=== PATIENT | female | born 2000 | race Two or more races ===

== ENCOUNTER → 2023-09-05 | Outpatient (REF) | payer MEDICARE ==
[2023-09-05 15:42] LABS: CHLAMYDIA DNA AMPLIFICATION NEGATIVE (NEGATIVE); GC DNA AMPLIFICATION NEGATIVE (NEGATIVE)
== END ==
LOC: M SFHCWAGY 13:27
PROVIDERS: ATTEND Nurse Practitioner Family
DX: Z11.3 Encounter for screening for infections with a predominantly sexual mode of transmission (principal); N73.9 Female pelvic inflammatory disease, unspecified

== ENCOUNTER → 2023-11-20 | Outpatient (REF) | payer MEDICARE, OTHER ==
[2023-11-20 19:02] LABS: Trichomonas vaginalis (AMP) NOT DETECTED (NEGATIVE)
[2023-11-20 19:25] LABS: GC DNA AMPLIFICATION NEGATIVE (NEGATIVE)
== END ==
LOC: M SFHCWAGY 16:55
PROVIDERS: ATTEND Nurse Practitioner Family
DX: Z12.4 Encounter for screening for malignant neoplasm of cervix (principal); Z11.3 Encounter for screening for infections with a predominantly sexual mode of transmission; R87.610 Atypical squamous cells of undetermined significance on cytologic smear of cervix (ASC-US)

== ENCOUNTER 2024-01-06 17:20 | Emergency (ER) | payer OTHER ==
[~2024-01-06] VITALS: Ht 152.4 cm; Wt 70.9 kg
[2024-01-06 18:27] LABS: HEMATOCRIT 43.3 % (36.0-47.0); HEMOGLOBIN 14.4 g/dl (12.0-15.5); MEAN CORPUSCULAR HEMOGLOBIN 30.4 pg (27.0-33.0); MEAN CORPUSCULAR HGB CONC 33.3 g/dl (32.0-36.5); MEAN CORPUSCULAR VOLUME 91.5 fl (80.0-96.0); PLATELET COUNT, AUTOMATED 269 10^3/uL (150-450); RED BLOOD COUNT 4.73 10^6/uL (4.00-5.40); WHITE BLOOD COUNT 6.3 10^3/uL (4.0-10.0)
[2024-01-06 18:33] LABS: AMPHETAMINES LEVEL URINE NEGATIVE (NEGATIVE); BARBITURATES URINE NEGATIVE (NEGATIVE); BENZODIAZEPINES URINE NEGATIVE (NEGATIVE); COCAINE METABOLITE URINE NEGATIVE (NEGATIVE); METHADONE URINE NEGATIVE (NEGATIVE); OPIATES URINE NEGATIVE (NEGATIVE); PHENCYCLIDINE URINE NEGATIVE (NEGATIVE)
[2024-01-06 18:36] LABS: ETHYL ALCOHOL (ETHANOL) < 0.003 % (0.000-0.010)
[2024-01-06 18:38] LABS: ALKALINE PHOSPHATASE 83 U/L (46-116); ALT/SGPT 11 U/L (7.0-40); AST/SGOT 10 U/L (<34); BILIRUBIN,DIRECT 0.2 MG/DL (<0.4); BILIRUBIN,TOTAL 0.5 MG/DL (0.3-1.2); BLOOD UREA NITROGEN 6 MG/DL (9-23); CALCIUM LEVEL 9.4 MG/DL (8.5-10.1); CARBON DIOXIDE LEVEL 26 MMOL/L (20-31); CHLORIDE LEVEL 106 MMOL/L (98-107); CREATININE FOR GFR 0.79 MG/DL (0.55-1.30); GLOMERULAR FILTRATION RATE > 60.0 (>60); GLUCOSE, FASTING 76 MG/DL (60-100); POTASSIUM SERUM 3.8 MMOL/L (3.5-5.1); SALICYLATE LEVEL < 3.0 MG/DL (<30); SODIUM LEVEL 139 MMOL/L (136-145); TOTAL PROTEIN 7.1 G/DL (5.7-8.2)
[2024-01-06 18:40] LABS: HCG, SERUM QUALITATIVE NEGATIVE (NEGATIVE); THYROID STIMULATING HORMONE 0.164 uIU/ML (0.55-4.78)
[2024-01-06 18:41] LABS: CANNABINOIDS URINE POSITIVE (NEGATIVE)
[2024-01-06] MEDS ORDERED: QUET1TAB17 PO (21:28)
[2024-01-06] MEDS ORDERED: CITA40TA7 PO (21:28)
[2024-01-06] MEDS ORDERED: INVE234I INJ (21:28)
[2024-01-06] MEDS ORDERED: HALO5TAB33 PO (21:28)
[2024-01-06] MEDS ORDERED: PROP10TA56 PO (21:28)
[2024-01-06] MEDS ORDERED: PRAZ1CAP PO (21:28)
[2024-01-06] MEDS ORDERED: HOME MED LIST COMPLETE! XX SCH (21:30)
[2024-01-06] MEDS ORDERED: QUEtiapine FUMERATE XR 50MG TABER PO ONE (22:50)
[2024-01-06] MEDS: NICOTINE 21MG/24HR 1 EA TRANSDERMAL TD ONE (23:02)
[2024-01-06 23:03] VITALS: BP 124/88
[2024-01-06] MEDS: QUEtiapine FUMARATE 25 MG TAB PO ONE (23:03)
[2024-01-06] MEDS: PROPRANOLOL 10 MG TAB PO ONE (23:03)
[2024-01-06] MEDS: PRAZOSIN 1 MG CAP PO ONE (23:03)
[2024-01-07] MEDS: NICOTINE 14 MG/24 HR TRANSDERMAL TD ONE (17:46)
[2024-01-07 19:33] VITALS: BP 135/82; TEMP 98; O2SAT 100
== END 2024-01-07 19:37 ==
LOC: M ED 17:20
DX: R45.851 Suicidal ideations (principal); F32.A Depression, unspecified; F31.9 Bipolar disorder, unspecified; F43.10 Post-traumatic stress disorder, unspecified; F20.9 Schizophrenia, unspecified; F17.290 Nicotine dependence, other tobacco product, uncomplicated; F12.10 Cannabis abuse, uncomplicated; Z79.899 Other long term (current) drug therapy